=== PATIENT | male | born 1995 | race Caucasian/White ===

== ENCOUNTER 2020-09-17 17:00 | Emergency (ER) | payer SELFPAY ==
[2020-09-17 17:02] VITALS: BP 110/72; PULSE 110; RESP 14; TEMP 37.3; O2SAT 97
--- NOTE | 2020-09-17 17:52 | ED.GENADUL_ITS ---
Discharge Plan Disposition Patient Disposition: HOME Discharge Details Clinical Impression: Ingrown toenail Primary Care Provider: Rosalind,Local ED Provider: Melanie Boyd Home Meds and New Rx's Prescriptions: No Action No Known Home Meds RF: 0 Discharge Instructions Additional Instructions: cut toe nails straigh across motrin/tylenol for pain follow-up with podiatry return with spreading redness, fever, worsening pain Stand Alone Forms: Work Release Referrals: Mat Romeo DPM [[facility] STAFF PHYSICIAN] - Discharge Data Discharge Date/Time-TO BE ENTERED AT DEPARTURE: 09/17/20 18:08 Medical Decision Making No indication for antibiotics Tolerated procedure without incident Work note supplied Podiatry referral Return precautions discussed and patient expressed understanding Differential Diagnosis Differential Diagnosis: Cellulitis, abscess, ingrown toenails, dermatitis Medical Records Medical records reviewed: Yes I reviewed the patient's medical records. HPI General Mode of arrival: ambulatory . Date/Time Provider Initiated Documentation: 09/17/20 17:06 . Limitations to Documentation: no limitations . Information obtained by: patient . HPI Narrative: This 24-year-old male presents with report of ingrown toenail to his right great toe. This has been going on for months per patient. He did state he was placed on a 5-day course of antibiotics a week ago. He denies any additional fever, chills, or complaints at this time. He states he had no improvement with the antibiotics. Describes the pain as aching. Related Data Home Medications Medication Instructions Recorded Confirmed Unknown [No Known Home Meds] 07/27/19 09/17/20 Allergies Allergy/AdvReac Type Severity Reaction Status Date / Time No Known Allergies Allergy Verified 09/17/20 17:08 General Stated Complaint: Cellulitis JOSSIE: 4 Review of Systems Narrative: Review of systems obtained x3 aside from where indicated in HPI [facility] Social History Smoking/Tobacco Use Status: Never Smoking risk assessment performed?: Yes Alcohol Intake: current Details: maybe one drink a month Drug use: Never Substance use type: does not use Do you feel safe at home: Yes Do you feel safe in your relationship?: Yes Exam Extrem Other: Ingrown toenail to right great toe along the tibial aspect, no surrounding erythema, no purulent drainage, no crepitus, and cap refill intact Course Vital Signs Vital signs: Vital Signs Temperature 37.3 C 09/17/20 17:02 Pulse 110 H 09/17/20 17:02 Respiratory Rate 14 09/17/20 17:02 Blood Pressure 110/72 09/17/20 17:02 Pulse Oximetry 97 09/17/20 17:02 Temperature 37.3 C 09/17/20 17:02 Temperature Source Skin 09/17/20 17:02 Pulse 110 H 09/17/20 17:02 Respiratory Rate 14 09/17/20 17:02 Blood Pressure 110/72 09/17/20 17:02 Blood Pressure Position Sitting 09/17/20 17:02 Pulse Oximetry 97 09/17/20 17:02 Oxygen Delivery Method Room Air 09/17/20 17:02 Oxygen Flow Rate 0 09/17/20 17:02 Pain Level 6 09/17/20 17:02 Comment 09/17/20 17:02 Procedures Other Description: Partial nail removal from the right great toe, 180 of nail removed, after injecting bupivacaine, approximately 10 cc of 0.5% and ring block pattern Patient tolerated procedure without incident Cleansed copiously injection applied
[2020-09-17 17:59] VITALS: PULSE 89; RESP 14; O2SAT 96
== END 2020-09-17 18:08 | disposition home or self-care (01) ==
PROVIDERS: Emergency Provider Physician Assistant
DX: L60.0 Ingrowing nail (principal)
CPT/HCPCS: 11750